=== PATIENT | male | born 1980 | race Caucasian/White ===

== ENCOUNTER 2016-07-24 07:49 | Emergency (ER) | payer MEDICAID ==
[2016-07-24] MEDS ORDERED: ACETAMINOPHEN 325 MG TAB ONE (08:01)
[2016-07-24] MEDS ORDERED: SODIUM CHLORIDE 0.9% 1,000 ML ONE ×3 (09:03→11:46)
[2016-07-24] MEDS ORDERED: CEFTRIAXONE 1 GM VIAL ONE (10:16)
[2016-07-24] MEDS ORDERED: SODIUM CHLORIDE 0.9% 100 ML IV ONE (10:17)
== END 2016-07-24 12:39 | disposition home or self-care (01) ==
LOC: ER 07:49
CPT/HCPCS: 36415; 71020; 80053; 81001; 83605; 85025; 85610; 85730; 87040; 87077; 87088; 87186; 87804; 87880; 93970; 96361; 96365; 96366